=== PATIENT | female | born 2000 | race Caucasian/White ===

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

== ENCOUNTER 2019-01-14 21:01 | Emergency (ER) | payer OTHER ==
[~2019-01-14] VITALS: Ht 157.5 cm; Wt 62.7 kg
[2019-01-14 22:29] LABS: BASO # 0.1 (0.0-0.2); BASO % 0.8 % (0.0-2.0); EOS # 0.3 (0.0-0.7); EOS % 2.7 % (0-4.0); GRAN # 5.9 (1.4-6.5); HEMATOCRIT 36.7 % (35.0-45.0); HEMOGLOBIN 12.3 g/dl (12.0-15.0); LYMPH # 2.6 (1.2-3.4); LYMPH % 26.8 % (20.0-51.0); MEAN CELL VOLUME 86 fl (80.0-95.0); MEAN CORPUSCULAR HEMOGLOBIN 29 pg (26.0-32.0); MEAN CORPUSCULAR HGB CONC 34 g/dl (33.0-37.0); MEAN PLATELET VOLUME 8.8 fl (7.4-10.4); MONO # 0.7 (0.1-0.6); MONO % 7.4 % (1.7-9.3); PLATELET COUNT 277 K/mm3 (130-400); RED BLOOD COUNT 4.29 M/mm3 (4.10-5.30); REDCELL DISTRIBUTION WIDTH-CV 13.1 % (11.5-14.5)
[2019-01-14 22:31] LABS: COLLECTION METHOD CLEAN CATCH
[2019-01-14 22:40] LABS: ALANINE AMINOTRANSFERASE 18 U/L (9-52); ALBUMIN 4.1 gm/dL (3.5-5.0); ALKALINE PHOSPHATASE 85 U/L (50-136); ANION GAP 8 mmol/L (7-16); AST,SGOT 22 U/L (15-37); BILIRUBIN,TOTAL 0.2 mg/dL (0.0-1.0); BLOOD UREA NITROGEN 19 mg/dL (7-17); CALCIUM 9.3 mg/dL (8.4-10.2); CARBON DIOXIDE 28 mmol/L (22-30); CHLORIDE 105 mmol/L (98-107); GLUCOSE 109 mg/dL (74-106); SODIUM 141 mmol/L (137-145); TOTAL PROTEIN 7.1 gm/dL (6.4-8.2)
[2019-01-14 22:41] LABS: MUCOUS Present /lpf; PH 6 (5-8); URINE APPEARANCE Hazy; URINE BACTERIA None Seen /hpf; URINE BILIRUBIN Negative (NEGATIVE); URINE BLOOD Negative (NEGATIVE); URINE COLOR Yellow; URINE GLUCOSE Negative (NEGATIVE); URINE KETONE Negative (NEGATIVE); URINE LEUKOCYTE ESTERASE Negative (NEGATIVE); URINE NITRATE Negative (NEGATIVE); URINE PROTEIN(semi-quant) Negative (NEGATIVE); URINE RBC 0-2 /hpf; URINE UROBILINOGEN >=4.0 mg/dL (NEGATIVE)
[2019-01-14 22:43] LABS: ACETAMINOPHEN < 10 ug/mL (10-30); ALCOHOL(ethanol),MEDICAL < 10 mg/dL; SALICYLATE < 1.0 mg/dL
[2019-01-14 22:50] LABS: TRICYCLIC ANTIDEPRESS URINE NEGATIVE
[2019-01-15] MEDS ORDERED: ADDERALL5 MG PO (02:35)
[2019-01-15 11:01] VITALS: TEMP 98.4
[2019-01-15 12:23] VITALS: BP 107/66; PULSE 86
== END 2019-01-15 12:29 | disposition home or self-care (01) ==
LOC: COL.ER 21:01
PROVIDERS: Nurse Practitioner
DX: F32.9 Major depressive disorder, single episode, unspecified (principal); R45.851 Suicidal ideations; F90.9 Attention-deficit hyperactivity disorder, unspecified type; F91.3 Oppositional defiant disorder
CPT/HCPCS: J1200; J1630; J2060

== ENCOUNTER 2019-02-01 09:57 | Emergency (ER) | payer OTHER ==
[~2019-02-01] VITALS: Ht 157.5 cm; Wt 58.2 kg
[~2019-02-01 09:57] MED LIST: ADDERALL5 MG PO
[2019-02-01 10:08] VITALS: BP 117/79; TEMP 97.3
[2019-02-01] MEDS ORDERED: PAXIL 20MG20 MG PO (10:15)
[2019-02-01] MEDS ORDERED: KLONOPIN2 MG PO (10:15)
[2019-02-01 10:30] LABS: COLLECTION METHOD CLEAN CATCH
[2019-02-01 10:54] LABS: PH 6 (5-8); SQUAMOUS EPITHELIAL 20-50 /hpf; URINE APPEARANCE Cloudy; URINE BACTERIA Rare /hpf; URINE BILIRUBIN Negative (NEGATIVE); URINE BLOOD Negative (NEGATIVE); URINE COLOR Yellow; URINE GLUCOSE Negative (NEGATIVE); URINE KETONE Negative (NEGATIVE); URINE LEUKOCYTE ESTERASE Negative (NEGATIVE); URINE NITRATE Negative (NEGATIVE); URINE PROTEIN(semi-quant) Negative (NEGATIVE); URINE RBC 0-2 /hpf; URINE UROBILINOGEN Negative (NEGATIVE)
[2019-02-01 10:54] LABS: BASO # 0.1 (0.0-0.2); BASO % 0.9 % (0.0-2.0); EOS # 0.3 (0.0-0.7); EOS % 2.8 % (0-4.0); HEMOGLOBIN 13.6 g/dl (12.0-15.0); LYMPH % 22.1 % (20.0-51.0); MEAN CELL VOLUME 85 fl (80.0-95.0); MEAN CORPUSCULAR HEMOGLOBIN 29 pg (26.0-32.0); MEAN CORPUSCULAR HGB CONC 34 g/dl (33.0-37.0); MEAN PLATELET VOLUME 9.1 fl (7.4-10.4); MONO # 0.7 (0.1-0.6); MONO % 7.8 % (1.7-9.3); PLATELET COUNT 371 K/mm3 (130-400)
[2019-02-01 10:58] LABS: ALBUMIN 4.4 gm/dL (3.5-5.0); BILIRUBIN,TOTAL 0.3 mg/dL (0.0-1.0); CALCIUM 9.9 mg/dL (8.4-10.2); CREATININE, serum 0.6 (0.52-1.25); POTASSIUM 4.2 mmol/L (3.4-5.0); TOTAL PROTEIN 7.7 gm/dL (6.4-8.2)
[2019-02-01 11:11] LABS: TRICYCLIC ANTIDEPRESS URINE NEGATIVE
[2019-02-01 11:35] VITALS: PULSE 79
== END 2019-02-01 11:35 | disposition home or self-care (01) ==
LOC: COL.ER 09:57
PROVIDERS: Family Medicine
DX: T46.5X5A Adverse effect of other antihypertensive drugs, initial encounter (principal); R40.0 Somnolence; F98.8 Other specified behavioral and emotional disorders with onset usually occurring in childhood and adolescence; F32.9 Major depressive disorder, single episode, unspecified; F91.3 Oppositional defiant disorder

== ENCOUNTER 2019-03-25 16:22 | Inpatient (IN) | payer OTHER, MEDICAID ==
[2019-03-25] VITALS (59 sets, daily range): BP systolic 139; BP diastolic 75; PULSE 129; TEMP 97.5; O2SAT 94–100
[~2019-03-25] VITALS: Ht 157.5 cm; Wt 67.0 kg
[~2019-03-25 16:22] MED LIST changes: +KLONOPIN2 MG PO; +PAXIL 20MG20 MG PO
[2019-03-25 17:54] LABS: COLLECTION METHOD IN
[2019-03-25 18:01] LABS: BASO # 0.1 (0.0-0.2); BASO % 0.6 % (0.0-2.0); EOS # 0.2 (0.0-0.7); EOS % 1.6 % (0-4.0); GRAN # 7.9 (1.4-6.5); GRAN % 62.5 % (42.2-75.2); HEMOGLOBIN 11.5 g/dl (12.0-15.0); LYMPH # 3.4 (1.2-3.4); LYMPH % 26.9 % (20.0-51.0); MEAN CELL VOLUME 87 fl (80.0-95.0); MEAN CORPUSCULAR HEMOGLOBIN 28 pg (26.0-32.0); MEAN CORPUSCULAR HGB CONC 33 g/dl (33.0-37.0); MEAN PLATELET VOLUME 9.1 fl (7.4-10.4); MONO % 7.8 % (1.7-9.3); PLATELET COUNT 294 K/mm3 (130-400); RED BLOOD COUNT 4.08 M/mm3 (4.10-5.30); REDCELL DISTRIBUTION WIDTH-CV 13.2 % (11.5-14.5)
[2019-03-25 18:02] LABS: MUCOUS Present /lpf; PH 5 (5-8); SQUAMOUS EPITHELIAL 0-2 /hpf; URINE APPEARANCE Clear; URINE BACTERIA None Seen /hpf; URINE BILIRUBIN Negative (NEGATIVE); URINE BLOOD Negative (NEGATIVE); URINE COLOR Yellow; URINE GLUCOSE Negative (NEGATIVE); URINE KETONE Negative (NEGATIVE); URINE LEUKOCYTE ESTERASE Negative (NEGATIVE); URINE NITRATE Negative (NEGATIVE); URINE PROTEIN(semi-quant) Negative (NEGATIVE); URINE RBC 0-2 /hpf; URINE UROBILINOGEN Negative (NEGATIVE)
[2019-03-25 18:09] LABS: ACETAMINOPHEN < 10 ug/mL (10-30); ALANINE AMINOTRANSFERASE 28 U/L (9-52); ALBUMIN 4.2 gm/dL (3.5-5.0); ALCOHOL(ethanol),MEDICAL < 10 mg/dL; ALKALINE PHOSPHATASE 96 U/L (50-136); ANION GAP 13 mmol/L (7-16); AST,SGOT 26 U/L (15-37); BILIRUBIN,TOTAL 0.2 mg/dL (0.0-1.0); BLOOD UREA NITROGEN 12 mg/dL (7-17); CALCIUM 8.8 mg/dL (8.4-10.2); CARBON DIOXIDE 23 mmol/L (22-30); CHLORIDE 106 mmol/L (98-107); CREATININE, serum 0.59 (0.52-1.25); GLUCOSE 132 mg/dL (74-106); POTASSIUM 3.4 mmol/L (3.4-5.0); SALICYLATE < 1.0 mg/dL; SODIUM 142 mmol/L (137-145)
[2019-03-25 18:20] LABS: HEMATOCRIT 35.4 % (35.0-45.0)
[2019-03-25 18:32] LABS: TRICYCLIC ANTIDEPRESS URINE POSITIVE
[2019-03-25 19:06] LABS: INR 0.9 (0.8-3.0); PROTHROMBIN TIME 10.2 SECONDS (9.7-12.8)
[2019-03-25 19:09] LABS: PARTIAL THROMBOPLASTIN TIME 27.2 SECONDS (26.0-37.0)
--- NOTE | 2019-03-25 21:05 | NUR ---
Patient admitted to ICU08 from ED, accompanied by [facility] ED RN. Patient in simons gown, suicide precautions in place. MARJ Ramirez outside of room, notified of arrival, will assume care of patient at this time.
[2019-03-25] MEDS ORDERED: PAXIL 20MG20 MG PO (21:12)
[2019-03-25] MEDS ORDERED: CLOZAPINE50 MG PO (21:12)
[2019-03-25] MEDS ORDERED: ADDERALL XR20 MG PO (21:13)
[2019-03-25 22:26] LABS: ARTERIAL BLD GAS O2 SATURATION 97.4 % (92-100); ARTERIAL BLD GAS TCO2 CT 24.5; ARTERIAL BLOOD GAS BASE EXCESS -1.5 (-2-2); ARTERIAL BLOOD GAS HCO3 23.3 meq/L (22-26); ARTERIAL BLOOD GAS PCO2 39.4 mmHg (35-45); ARTERIAL BLOOD GAS PO2 100.5 mmHg (80-100); ARTERIAL BLOOD GAS pH 7.39 (7.35-7.45)
[2019-03-26] VITALS (228 sets, daily range): BP systolic 105–135; BP diastolic 62–98; PULSE 106–126; TEMP 98–98.9; O2SAT 91–100
--- NOTE | 2019-03-26 00:10 | NUR ---
Patient assessment completed at this time, patient remains in suicide precautions, in simons gown. Patient sleeping, agitated on arousal. Will continue to monitor.
[2019-03-26 01:13] LABS: BASO # 0.1 (0.0-0.2); BASO % 0.6 % (0.0-2.0); EOS % 0.3 % (0-4.0); GRAN # 11.7 (1.4-6.5); GRAN % 81.3 % (42.2-75.2); HEMATOCRIT 35.9 % (35.0-45.0); HEMOGLOBIN 12.2 g/dl (12.0-15.0); LYMPH # 1.7 (1.2-3.4); LYMPH % 12.1 % (20.0-51.0); MEAN CELL VOLUME 83 fl (80.0-95.0); MEAN CORPUSCULAR HEMOGLOBIN 28 pg (26.0-32.0); MEAN CORPUSCULAR HGB CONC 34 g/dl (33.0-37.0); MEAN PLATELET VOLUME 8.9 fl (7.4-10.4); MONO # 0.8 (0.1-0.6); MONO % 5.4 % (1.7-9.3); PLATELET COUNT 336 K/mm3 (130-400); RED BLOOD COUNT 4.31 M/mm3 (4.10-5.30); REDCELL DISTRIBUTION WIDTH-CV 13.3 % (11.5-14.5)
[2019-03-26 01:23] LABS: ALBUMIN 4.1 gm/dL (3.5-5.0); BILIRUBIN,TOTAL 0.4 mg/dL (0.0-1.0); CALCIUM 9.4 mg/dL (8.4-10.2); CREATININE, serum 0.49 (0.52-1.25); POTASSIUM 4.2 mmol/L (3.4-5.0); TOTAL PROTEIN 7.4 gm/dL (6.4-8.2)
--- NOTE | 2019-03-26 02:35 | NUR ---
Patient remains agitated upon arrousal. Patient requiring multiple staff members for bed changes, will continue to monitor.
--- NOTE | 2019-03-26 06:33 | NUR ---
Patient continues to strike out at staff when arroused both verbally and physically. Patient remains in suicide precautions, in simons gown and in one to one observation.
--- NOTE | 2019-03-26 07:10 | NUR ---
Report received from MIGUEL Little.
--- NOTE | 2019-03-26 08:00 | NUR ---
Pt resting in bed. VSS. LR infusing throught left FA PIV. Pt remains on suicide precautions with one to one observation.
--- NOTE | 2019-03-26 12:17 | NUR ---
Pt resting in bed. Becomes agitated when awaken. Pt oriented to self, attempted to reorient patient to place and situation. Pt uncooperative at times and moves away from nurse when helping pt on bedpan. Pt states she is tired and just wants to sleep. Warm blanket provided. Pt RAMANDO and turns self in bed. Remains in suicide precautions. Wearing simons gown. One to one observation.
--- NOTE | 2019-03-26 14:14 | NUR ---
Pt still drowsy. Wakes up briefly and is agitated. Disoriented to place and situation. Attempt to reorient pt. Pt falls back asleep.
--- NOTE | 2019-03-26 14:45 | NUR ---
Pt very agitated, trying to get OOB. Says she needs to go to the bathroom. Bedpan offered, pt refuses to get on bedpan. Pt states her sheets are dirty and wants to get cleaned. Pt disoriented, says she is at home. Attempted to reorient pt to place and situation. Pt given bed bath, linens changed. Pt still very agitated, impulsive, trying to get OOB. PRN ativan IVP given.
--- NOTE | 2019-03-26 15:00 | NUR ---
Pt disoriented and agitated. Calmed down once offered warm blanket for comfort. Pt now resting in bed. Remains on suicide precautions and one to one observation.
--- NOTE | 2019-03-26 15:30 | NUR ---
Pt restless in bed, trying to climb OOB. Says she is in school. Attempted to reorient pt. Pt remains on suicide precautions with one to one observation.
--- NOTE | 2019-03-26 17:30 | NUR ---
Pt resting in bed. VSS. On suicide precautions with one to one observation. Bed exit alarm still on.
--- NOTE | 2019-03-26 19:20 | NUR ---
Report given to MIGUEL Ackerman.
--- NOTE | 2019-03-26 19:57 | NUR ---
PT RESTING IN BED, GETS AGITATED UPOM AROUSAL. PT RAMBLING IN HER SLEEP AND STRIKING OUT IN AIR AND PICKING ON LINES AND SHEETS. INCONTINENT CARE PROVIDED, ALL BED LINENS CHANGED. PT GETS AGRESSIVE PHYSICALLY AND VERBALLY TOWARDS TO STAFF WHEN CHANGING BED LINENS. VITAL SIGNS STABLE. PT REMAINS 1:1 OBSERVATION AND ON PARRA GOWN. ALL STIMULATION DECREASE, TV OFF. PRN HALDOL AVAILABLE IF NEEDED. WILL CONTINUE TO MONITOR.
[2019-03-27] VITALS (806 sets, daily range): BP systolic 99–138; BP diastolic 51–85; PULSE 98–120; TEMP 97.5–99.8; O2SAT 75–100
--- NOTE | 2019-03-27 00:15 | NUR ---
PT RESTING IN BED, SLEEPING. THIS RN TRIED PUTTING BP CUFF INTO PT'S ARM BUT PT TOOK IT OFF RIGHT AWAY AND STARTED GETTING AGIATTED AGAIN. WILL RE-ATTEMPT RECHECK LATER AT 0400 ASSESSMENT. OTHERWISE, PT APPEARS COMFORTABLE AT THIS TIME, REMAINS ON 1:1. WILL CONTINUE TO MONITOR.
[2019-03-27 04:54] LABS: BASO # 0.1 (0.0-0.2); BASO % 0.6 % (0.0-2.0); EOS # 0.2 (0.0-0.7); EOS % 0.9 % (0-4.0); GRAN # 15.1 (1.4-6.5); GRAN % 85.7 % (42.2-75.2); HEMATOCRIT 37.6 % (35.0-45.0); HEMOGLOBIN 12.3 g/dl (12.0-15.0); LYMPH # 1.3 (1.2-3.4); LYMPH % 7.4 % (20.0-51.0); MEAN CELL VOLUME 86 fl (80.0-95.0); MEAN CORPUSCULAR HEMOGLOBIN 28 pg (26.0-32.0); MEAN CORPUSCULAR HGB CONC 33 g/dl (33.0-37.0); MONO # 0.9 (0.1-0.6); MONO % 4.9 % (1.7-9.3); PLATELET COUNT 311 K/mm3 (130-400); RED BLOOD COUNT 4.35 M/mm3 (4.10-5.30); REDCELL DISTRIBUTION WIDTH-CV 13.5 % (11.5-14.5)
--- NOTE | 2019-03-27 04:55 | NUR ---
Jessica from poison control called and updated regarding pt. pt had a good and mostly calm night if not stimulated/awakened. pt mostly sleeping. VSS. pt remains on 1:1 observation and all precaution in place. will continue to monitor.
[2019-03-27 05:04] LABS: ALBUMIN 3.8 gm/dL (3.5-5.0); BILIRUBIN,TOTAL 0.9 mg/dL (0.0-1.0); CREATININE, serum 0.65 (0.52-1.25); MAGNESIUM 1.8 mg/dL (1.6-2.3); POTASSIUM 3.7 mmol/L (3.4-5.0); TOTAL PROTEIN 6.7 gm/dL (6.4-8.2)
--- NOTE | 2019-03-27 06:11 | NUR ---
PT YELLINNG AND SCREAMING "STOP TOUCHING ME! DON'T TOUCH ME! SHE'S RAPING ME!" THIS RN WAS CHANGING PT'S BED LINENS WITH CHARLIERN AND MIGUEL PEREZ. PT GETS REALLY WORKED UP AND AGITATED WHEN AROUSED/AWAKENED AND GETS PHYSICALLY AGGRESIVE TOWARDS STAFF. PT REMAINS ON 1:1 OBSERVATION, ALL PRECAUTIONS IN PLACE. WILL CONTINUE MONITORING.
--- NOTE | 2019-03-27 07:00 | NUR ---
REPORT RECEIVED FROM MIGUEL EDWARDS. HIREN SLEEPING IN BED WITH CRM IN PLACE. LR INFUSING TO LEFT FOREARM IV.
--- NOTE | 2019-03-27 09:00 | NUR ---
DR. LAWSON ROUNDS AT THIS TIME. PATIENT SLEEPING.
--- NOTE | 2019-03-27 10:00 | NUR ---
PATIENT WAKES AND STARTS SCREAMING THAT SHE NEEDS TO USE THE RESTROOM. SHE IS ASSISTED TO USE THE BEDPAN. LINENS GET WET, MYSELF AND ANOTHER NURSE ATTEMPT TO HAVE PATIENT ROLL FROM SIDE TO SIDE TO GET HER LINENS CHANGED. SHE CONTINUES TO SCREAM AND YELL AND CRY, THRASHING ABOUT IN THE BED AND STRIKING OUT AT US ANY TIME WE ATTEMPT TO GET HER CLEANED UP OR TURNED. PATIENT IS UNABLE TO FOLLOW DIRECTION AT THIS TIME. SHE IS GIVEN DIRECTIONS AND THEN STARTS DOING SOMETHING COMPLETELY DIFFERENT OR DOES THE OPPOSITE. EVENTUALLY, PATIENT GOWN IS CHANGED. LINENS CHANGED BEST POSSIBLE. ONCE WE STOP HELPING THE PATIENT, SHE LIES ON HER SIDE AND BECOMES QUIET.
--- NOTE | 2019-03-27 12:00 | NUR ---
PATIENT WAKES AND ASKS FOR LUNCH. I ASK HER ORIENTATION QUESTIONS AND SHE ANSWERS CORRECTLY. I ASK HER WHY SHE IS IN THE HOSPITAL. SHE ANSWERS CORRECTLY. I ASK HER IF SHE IS STILL SUICIDAL. SHE STATES " NO, BUT I'M JUST MAD I'M SUCK HERE." I EXPLAIN THE PLAN OF CARE FROM THIS POINT. SHE VERBALIZES UNDERSTANDING.
--- NOTE | 2019-03-27 14:00 | NUR ---
DR. LAWSON COMES BACK TO SEE PATIENT NOW THAT SHE IS COMMUNICATING WELL WITH STAFF. HE EXPLAINS THE NEED TO BE IN THE HOSPITAL AND THE PLAN FOR TOMORROW. PSYCHIATRY WILL COME SEE HER TOMORROW.
--- NOTE | 2019-03-27 17:00 | NUR ---
Patient continues to communicate appropriately, using call light when she needs something, asking for things politely. She is able to use bedside commode with assistance of one person. Will continue to monitor.
--- NOTE | 2019-03-27 19:06 | NUR ---
REPORT GIVEN TO MIGUEL ETIENNE. PATIENT LYING IN BED AND PARTICIPATES IN REPORT AND DISCUSSION OF PLAN OF CARE. CARE TURNED OVER AT THIS TIME.
--- NOTE | 2019-03-27 20:18 | NUR ---
Patient sleeping in bed. Able to use call light appropriately but still under direct supervision by RN. Bed alarm functional. Patient denies current throughts of harming herself or others. Able to move self in bed independently.
[2019-03-28] VITALS (380 sets, daily range): BP systolic 123–138; BP diastolic 67–85; PULSE 83–113; TEMP 97.9–99.4; O2SAT 71–100
[2019-03-28 05:39] LABS: BASO # 0.1 (0.0-0.2); BASO % 0.6 % (0.0-2.0); EOS # 0.3 (0.0-0.7); EOS % 2.6 % (0-4.0); GRAN # 7.9 (1.4-6.5); GRAN % 72.7 % (42.2-75.2); HEMATOCRIT 37.4 % (35.0-45.0); HEMOGLOBIN 12.3 g/dl (12.0-15.0); LYMPH # 1.9 (1.2-3.4); LYMPH % 17.5 % (20.0-51.0); MEAN CELL VOLUME 86 fl (80.0-95.0); MEAN CORPUSCULAR HEMOGLOBIN 28 pg (26.0-32.0); MEAN CORPUSCULAR HGB CONC 33 g/dl (33.0-37.0); MEAN PLATELET VOLUME 9.2 fl (7.4-10.4); MONO # 0.7 (0.1-0.6); PLATELET COUNT 324 K/mm3 (130-400); RED BLOOD COUNT 4.37 M/mm3 (4.10-5.30); REDCELL DISTRIBUTION WIDTH-CV 13.6 % (11.5-14.5)
[2019-03-28 05:46] LABS: BILIRUBIN,TOTAL 0.4 mg/dL (0.0-1.0); CALCIUM 9.2 mg/dL (8.4-10.2); CREATININE, serum 0.76 (0.52-1.25); MAGNESIUM 1.7 mg/dL (1.6-2.3); POTASSIUM 3.5 mmol/L (3.4-5.0); TOTAL PROTEIN 7.1 gm/dL (6.4-8.2)
--- NOTE | 2019-03-28 07:30 | NUR ---
Bedside shift report received from MIGUEL Bermudez. Patient is lying in bed awake, alert, and responding appropriately. Full assessment completed. Vital signs stable. Patient has no complaints or concerns at this time.
--- NOTE | 2019-03-28 08:00 | NUR ---
Patient's mood suddenly becomes labile. Patient states "My IV is hurting" while crying. Patient unable to describe pain, just states "it hurts" while continuously crying. Left forearm IV site assessed. Site has no redness drainage or edema. IV site flushed and blood return noted. Patient is currently receiving her second bag of potassium IV and is educated that the potassium can sting. Patient states "Stop the IV then, it hurts". Patient is refusing IV fluids and IV potassium at this time. Once intermittent IV flushed and IV fluids discontinued, patient stops crying and starts to relax.
--- NOTE | 2019-03-28 08:53 | NUR ---
Patient is currently sleeping in bed. Vital signs stable. 20mEq EfferK reconstituted in apple juice and patient educated on need to drink the juice with potassium since she has refused all IV meds/fluids at this time. Patient opens eyes and nods 'yes' that she will drink the juice, but then goes back to sleep.
--- NOTE | 2019-03-28 10:15 | NUR ---
RT at bedside to obtain ordered EKG to assess patient's QTc. Patient is very uncooperative and is rolling around in the bed. Patient is instructed to lay on her back and that we were going to place stickers on her to look at her heart rhythm. Patient is yelling and states "I just wanna go home! I don't wanna be here!". Patient is educated that knowing her QTc interval will allow the doctors to decide if she is able to be 'medically cleared' to go home. Patient continued to be uncooperative. RT told by RN to just document that she is refusing the EKG. Patient then yells "No! I want it!". Patient is then mostly cooperative and needs some reeducation to lay on her back and to lay completely still. EKG completed and results called to CARI Pritchard at this time.
--- NOTE | 2019-03-28 10:35 | NUR ---
Psychiatric consult was ordered for the patient.
--- NOTE | 2019-03-28 10:45 | NUR ---
Due to the patient's condition, FASHION DESIGN PROFESSOR student contacted the patient's father, Cesar Evans to complete initial assessment. Cesar reports there is no DPOA-HC in place. The patient lives [facility] [place] [facility] The patient does not use DME and is independent with ADLs. The patient's PCP is on [place] and possibly will begin seeing a provider at [facility]. [facility] assist with medications. The patient goes to [facility] for mental health medications. Cesar provided the [facility]'s nursing program coordinatorsupply chain logistics manager, Olivia Burdick, [facility] and office number. A Psychiatric Consult ordered. guest services lead will continue to follow.
--- NOTE | 2019-03-28 11:47 | NUR ---
Patient is sleeping at this time with no complaints or concerns.
--- NOTE | 2019-03-28 12:19 | NUR ---
Patient asks "When can I go back?" meaning when can she go back to [facility]. Patient reeducated that she needs to be seen by the psychiatrist first who will be here later this afternoon.
--- NOTE | 2019-03-28 13:10 | NUR ---
Patient's dad at ICU doors to visit patient. Mr. Evans is updated on the patient's condition and told that his daughter still needs to be screened by Psych before she can have any visitors. He understands this and would like to be updated when his daughter is seen by Psych. He states he will hang out at the hospital until Psych arrives to be updated on his daughters plan of care.
--- NOTE | 2019-03-28 15:50 | NUR ---
Patient presses call light and I answered. Patient states "I wanna go home!" while crying. I educated the patient and told her that Dr. Garrtet was rounding now and would be able to see her in a few minutes and would determine a plan of care for her. Patient continues to cry and states "I just wanna go home! Why can't I go home? I want to call Vy." Patient re-educated on need to see psychiatrist first. Patient does not understand this and needs frequent re-educating.
--- NOTE | 2019-03-28 16:03 | NUR ---
Patient's parents are notified of patient being assessed by psychiatry and are awaiting update from Dr. Garrett in the ICU waiting room.
--- NOTE | 2019-03-28 16:05 | NUR ---
During assessment with Dr. Garrett, patient's mood becomes very labile and patient is yelling saying "I want to go home!" over and over. Patient is very uncooperative, crying, and having several verbal outbursts. Dr. Garrett completes assessment and meets with patient's parents in the waiting room to discuss plan of care.
--- NOTE | 2019-03-28 16:09 | NUR ---
Patient refusing vital sign monitoring at this time.
--- NOTE | 2019-03-28 16:15 | NUR ---
Patient presses call light again and is loudly crying and yelling continuously "I wanna leave! I wanna leave!". Patient re-educated on plan of care.
--- NOTE | 2019-03-28 16:45 | NUR ---
Patient's dad and Vy (caregiver from [facility]) at bedside to soothe patient. Patient continues to yell, wail, and cry saying "I want to go home!". Patient's father seems to think that he can "get her to go voluntarily" to a psych inpatient facility. Dr. Garrett updated via telephone of patient's current status being uncooperative, yelling, crying, labile moods, and states that the patient should be admitted involuntarily to an inpatient psych facility at this time. [facility] notified of need to screen.
--- NOTE | 2019-03-28 17:00 | NUR ---
Patient becomes belligerant, aggressive, and violent. Patient is banging on windows, throwing items around the room, and pushing staff attempting to leave her room. Security called and at the bedside. 3 RNs attempted to reorient patient and calm patient down, but unsuccessful. Patient continues to be extremely violent. Patient states "I'm gonna kill myself", "I'm gonna kill myself". Patient places herself in the corner and begins to bang her head against the wall continuously. Patient told to stop hitting her head, security tries to calm her down and patient states "Don't touch me, nigger". Patient becomes extremely combative by grabbing, digging nails into, and spitting on nurses/security. Dr. Garrett called and orders received for IM medications due to patient ripping out her IV. Dr. Garrett also orders for 4-point locked restraints and restraints initiated by 4 RNs and 1 security staff. Once patient in 4-points, patient continues to spit. Patient starts to bang head against all of the side rails. Side rails padded at this time to protect patient's head. Patient continues to scream, wail, yell, and flail all [address] patient on a continuous heart monitor, patient thrashing about and attempts to bite RNs. Unable to place heart monitor at this time. EKG from this morning (03/28/2019 at 1009) shows a QTc of 390 and paper EKG placed in paper chart. For some reason, EKG has not shown up in [facility] as of yet. Will attempt to place heart monitor when patient calms down.
--- NOTE | 2019-03-28 17:28 | NUR ---
Unable to take patient's vital signs at this time. Patient is violent and combative in 4-point restraints.
--- NOTE | 2019-03-28 18:19 | NUR ---
updated on patient's status and need for 4-point restraints. Father is understanding and familiar with the psychiatric care process.
--- NOTE | 2019-03-28 19:00 | NUR ---
Bedside shift report given to MIGUEL Hernandez. Patient is lying in bed, 4-point restraints intact. Patient's left arm exercised by 2 RNs and then restrained back down to side. Patient is calmer and has allowed RN to place heart monitor on her. She is wearing a telemetry box. Patient is tachycardic at 106bpm. Bed in lowest position and in reverse trendelberg at this time. Call light placed within reach. Personal belongings stowed away in locked cabinet in soiled utility room.
--- NOTE | 2019-03-28 19:20 | NUR ---
Bedside report received from MIGUEL Linda. Patient is restrained in 4 points. Left arm repositioned and restraints secured.
--- NOTE | 2019-03-28 20:00 | NUR ---
Patient laying in bed watching TV. She remains in 4-points and has been restless and struggling in the restraints. Patient yells when she talks. Discussed with patient the slow removal of restraints as she remains cooperative, removing one restraint at a time. Patient is agreeable and states she will cooperate. She is alert and oriented x4. No complaints of pain, just some discomfort with restraints. Restraints checked and patient has good circulation and movement. Assessment complete. Lungs are clear bilaterally in all leon. HR and rhythm are regular with normal S1 and S2 heard. Bowel sounds active x4. Peripheral pulses are palpable in all extremities. Patient has scratches on her left forearm. Offered fluids and restrrom, she denies need for both. Will continue to monitor. Call light within reach.
--- NOTE | 2019-03-28 20:50 | NUR ---
Julián here at this time from [facility] to screen the patient.
--- NOTE | 2019-03-28 22:40 | NUR ---
Patient has been cooperative thus far in the shift with the exception of some agitation when the [place] screener was speaking with her. Right arm restraint removed. Will continue to monitor.
--- NOTE | 2019-03-28 23:19 | NUR ---
written orders received from Dr Smart for restraint renewal.
--- NOTE | 2019-03-28 23:30 | NUR ---
Patient has remained cooperative and calm. Left leg restraint removed and spit hackett taken off.
[2019-03-29] VITALS (18 sets, daily range): BP systolic 104–135; BP diastolic 56–95; PULSE 91–120; TEMP 97.2–99.7
--- NOTE | 2019-03-29 | NUR ---
Patient asleep at this time. Startles awake to name. Vitals obtained and remain stable. Patient is being cooperative. Assessment complete with no changes from previous exam. Remaining two limbs in restraints are warm and dry to the touch, pulses intact, good circulation. Patient attempts to turn on her side with some success. Denies want for bedpan or fluids/snack. Will continue to monitor. Will continue to remove restraints as patient behavior allows.
--- NOTE | 2019-03-29 00:56 | NUR ---
Right leg restraint removed at this time.
--- NOTE | 2019-03-29 02:20 | NUR ---
Patient's 4point restraints D/C'd at this time. Patient has been cooperative and noncombative and has done well with extremity releases. Patient meets criteria for restraint removal.
--- NOTE | 2019-03-29 02:20 | NUR ---
Patient's last restraint removed at this time. Patient is quiet and sleeping. Awakens to name. She has been cooperative and pleasant. Will continue to monitor.
[2019-03-29 05:10] LABS: BASO # 0.1 (0.0-0.2); BASO % 0.8 % (0.0-2.0); EOS # 0.3 (0.0-0.7); EOS % 2.6 % (0-4.0); GRAN # 7.8 (1.4-6.5); GRAN % 71.9 % (42.2-75.2); HEMATOCRIT 37.9 % (35.0-45.0); HEMOGLOBIN 12.9 g/dl (12.0-15.0); LYMPH # 1.8 (1.2-3.4); LYMPH % 16.6 % (20.0-51.0); MEAN CELL VOLUME 84 fl (80.0-95.0); MEAN CORPUSCULAR HEMOGLOBIN 28 pg (26.0-32.0); MEAN CORPUSCULAR HGB CONC 34 g/dl (33.0-37.0); MONO # 0.8 (0.1-0.6); MONO % 7.5 % (1.7-9.3); PLATELET COUNT 327 K/mm3 (130-400); RED BLOOD COUNT 4.54 M/mm3 (4.10-5.30); REDCELL DISTRIBUTION WIDTH-CV 13.4 % (11.5-14.5)
[2019-03-29 05:19] LABS: CREATININE, serum 0.58 (0.52-1.25); POTASSIUM 3.9 mmol/L (3.4-5.0)
--- NOTE | 2019-03-29 07:00 | NUR ---
Bedside shift report received from MIGUEL Hernandez. Patient is sleeping soundly. Telemetry box on and functioning appropriately, 91bpm sinus rhythm. Bed in lowest position. Call light within reach. Personal items remain stowed away in locked cabinet in soiled utility room. Room remains cleared of all potential hazardous items due to patient's reason for admission and current psychological status to ensure patient and staff safety.
--- NOTE | 2019-03-29 07:07 | NUR ---
Bedside report given to MIGUEL Linda. Patient has remained calm and cooperative. Transfer of care at this time.
--- NOTE | 2019-03-29 08:00 | NUR ---
Patient sitting up in bed. Patient's meal tray brought into room. Offered patient to use the restroom and she accepts. Patient assisted to toilet with no complications. Assessment completed. Vital signs stable. Patient asks "When am I getting out of here? What facility am I going to? What time am I leaving? Can I speak to Vy?" Patient updated and told that RN hasnt heard from [facility] and does not know a time frame or which facility the patient will be going to. Patient is instructed that she cannot talk to Vy at this time due to reason for admission. Patient states "Can you ask someone if I can talk to Vy?" Patient informed that RN will inquire, but most likely no. Bed linens changed at this time. Patient independently brushes her teeth and places shower cap on head to wash hair. Patient finishes breakfast, tray brought to soiled utility room, and patient lays down to rest watching TV.
--- NOTE | 2019-03-29 08:30 | NUR ---
[facility] and patient states she has no recollection of talking with him. She states she "doesn't remember being well".
--- NOTE | 2019-03-29 08:50 | NUR ---
Patient's mood becomes labile alternation between a flat affect with responses very monotone and crying, becoming more anxious. Patient medicated with PO Ativan at this time via PRN order from Dr. Wheeler. Patient continues to ask "When am I getting out of here?", "When is the doctor coming?", "What facility am I going to?" It remains unknown what the timeline is for her leaving, how she will be transported, and where she is going and patient is told that. Patient needs constant re-education on plan of care and shows she is not happy with it by crying and raising her voice in response. Patient is unable to control her emotions at this time.
--- NOTE | 2019-03-29 09:26 | NUR ---
Patient continues to have labile moods alternating between flat affect, monotone voice and crying.
--- NOTE | 2019-03-29 09:35 | NUR ---
[facility] called to get updated on what the plan is today. Julián unavailable at this time, but woman who answered took a message and the ICU number and will get back to me with answers when Julián becomes available.
--- NOTE | 2019-03-29 09:37 | NUR ---
Patient presses call light and states "I'm hungry" after eating her breakfast. She states she wants sweets. Food ordered from culinary services and patient told it would be up momentarily. Patient states "I want it now".
--- NOTE | 2019-03-29 09:59 | NUR ---
Talked to Julián and updated him on patient's current status and that she doesn't remember talking to him at all yesterday. Julián questioned about whether the patient will be voluntary or involuntary, Julián states she will be an involuntary admit. Will fax over patient's chart to [facility] to get placement.
--- NOTE | 2019-03-29 10:15 | NUR ---
Patient offered restroom and fluids and accepts both. Patient asks "When am I leaving?" "Where am I going?". Told patient that I talked to Julián from [facility] and he is working on getting her placed somewhere. I do not know a timeline. Patient then states "I'm hungry" just after finishing the snack of brownie and ice cream she requested.
--- NOTE | 2019-03-29 10:27 | NUR ---
Discussed with Mee Horticulture Supervisor about patient's plan of care and conversation with Julián Broderick. Mee states she will review the chart and update patient's family at this time.
--- NOTE | 2019-03-29 10:30 | NUR ---
Julián from [facility] reports the patient is to be placed involuntary for inpatient psychiatric treatment. MATERIAL HANDLING SUPERVISOR student contacted the patient's father, Cesar and the web developer programmer with [facility] Gonzalez both were in agreeance. director of managed services will continue to follow.
--- NOTE | 2019-03-29 10:31 | NUR ---
Patient continues to have a labile mood and unable to manage behavior by alternating between a flat affect, monotone responses and crying.
--- NOTE | 2019-03-29 11:00 | NUR ---
Patient given vanilla and chocolate pudding as well as apple sauce per her request. Patient eats 100% of snack. Livia the plug cutter made aware of patient's constant request for food and snacks and she is ordering snacks TID between her meals.
--- NOTE | 2019-03-29 11:01 | NUR ---
[facility] called to check if fax went through of the patient's chart that Julián requested. Fax did not come through yet and [facility] states they will call me back if it does not come through shortly so Jessica, Refrigerator Repairman can resend fax.
--- NOTE | 2019-03-29 11:30 | NUR ---
Patient is up and about in the room, ambulating without difficulty.
--- NOTE | 2019-03-29 11:36 | NUR ---
Patient returns to bed and is lying down watching TV.
--- NOTE | 2019-03-29 11:58 | NUR ---
Patient states "When is the chelsea coming to talk to me?". RN asks "The chelsea from [facility]?". Patient states "Yes". Patient told that she talked to Julián last night and that he has already completed the screen. Patient states "I thought he was coming back to take me to the facility? When am I leaving to go to the new place?" Patient told that I still do not have a timeline for when she is leaving and I have not heard back from Julián yet about placement. Her chart has been faxed to Julián per his request.
--- NOTE | 2019-03-29 12:12 | NUR ---
Patient is alternating between lying in bed and pacing around the room. Patient is restless and not able to sit still.
--- NOTE | 2019-03-29 12:15 | NUR ---
Patient presses call light and asks RN "What day is it?" "Which hospital am I in?" and "When am I getting out of here?". I told her the date, that she was in [place], [place] at [facility], and that I have yet to hear back from Julián but I would update her as soon as I knew.
--- NOTE | 2019-03-29 12:31 | NUR ---
Patient presses call light and asks "When is my food coming?". I called to get her a second lunch tray at 1155 and they said they bring her up one once the servers finish rounding on all their patients for lunch. Patient is told this previously and is retold this now. Patient also inquires about getting a second pair of glasses from home since she broke hers yesterday evening. , patient's father, contacted to see if Vy (patient's caregiver) could bring her another pair if possible.
--- NOTE | 2019-03-29 12:46 | NUR ---
Patient continues to be up and down out of bed, ambulating around room, to and from the bedside commode.
--- NOTE | 2019-03-29 13:01 | NUR ---
Patient finished her second lunch tray and told that as soon as I learn anything about her plan of care or a timeline, I will let her know. Patient also informed that she should have a snack coming around 1400-1430ish. Patient nods in understanding.
--- NOTE | 2019-03-29 13:12 | NUR ---
Patient presses call light and requests coloring pages and crayons to keep herself busy. Will look for these items to give to her.
--- NOTE | 2019-03-29 13:28 | NUR ---
salvage supervisor Marilyn retrieved coloring book/pages and some crayons and they were given to the patient.
--- NOTE | 2019-03-29 14:28 | NUR ---
Scheduled snack placed in patients room on bedside table, but patient is sleeping at this time.
--- NOTE | 2019-03-29 14:41 | NUR ---
Patient awake, eats snack, and is now ambulating around room and using the restroom.
--- NOTE | 2019-03-29 14:55 | NUR ---
Patient presses call light and asks "When am I getting out of here?". I repeated to patient what I told her earlier, that I have not heard back from Julián and will update her as soon as I know anything, but I have not heard anything yet. Patient would like her glasses and I told her that I have contacted her father who said he would get ahold of Vy to find her other pair of glasses. Patient is upset as noted by crying and grimacing facial expressions and states "I can't see without my glasses". Patient reassured that I let her father and Vy know, but I haven't heard back from them yet.
--- NOTE | 2019-03-29 15:21 | NUR ---
Bedside monitor screen just went black. All connections and outlets assessed and nothing has come unplugged. Christiana called and at the bedside within a few minutes. Monitor assessed by optical manufacturing technician and he determines that the monitor needs replaced. Until then, Jessica podiatric technician notified of my inability to see heart rhythm at bedside. Telemetry box intact and heart rhythm still able to be monitored by Jessica at this time.
--- NOTE | 2019-03-29 15:30 | NUR ---
dairy technologist in room to change out monitor and patient starts to work herself up, crying, yelling out over and over "I wanna go home! I wanna go home! I want my dad! I want my dad!". RN attempted to calm patient by reorienting her and explaining the plan of care once again, patient does not calm down and continues to cry and yell out. dairy technologist steps out of room to fix monitor, patient continues to cry. RN steps out to continue 1:1 observation. force variation equipment tender Eric, ICU Occupational Therapist Home Based Sana, and security made aware of patient's sudden drastic change in mood in case there is a need to intervene for behavior escalation.
--- NOTE | 2019-03-29 15:52 | NUR ---
Patient refusing vital signs at this time.
--- NOTE | 2019-03-29 16:07 | NUR ---
Talked with Angeles at [facility] about an update on patient's current status with involuntary placement. Angeles states that Julián faxed over to [facility] and the patient is on the waiting list there to be accepted. Timeline of when patient will be accepted to OSH is unknown at this time.
--- NOTE | 2019-03-29 16:18 | NUR ---
Patient presses call light and states "I'm hungry". I let the patient know that the meal trays should be coming around within the hour.
--- NOTE | 2019-03-29 16:22 | NUR ---
IT returns with new monitor to place in room; however, previously the patient became very agitated with crying, verbal outbursts, and unable to manage her behavior. Therefore, IT was told to wait on placing the new monitor and to check back tomorrow.
--- NOTE | 2019-03-29 16:46 | NUR ---
Patient remains hungry and snack of applesauce and saltine crackers given to patient prior to dinner tray arrival.
--- NOTE | 2019-03-29 17:07 | NUR ---
Patient's crying and frequent labile moods have subsided for now. Patient allows me to take her vital signs at this time.
--- NOTE | 2019-03-29 18:10 | NUR ---
Patient is requesting to recieve a "shot to help me sleep". I asked if she was wanting the same shot she got in her leg last night and patient states "yes". This is the second time in the last hour she has requested a shot to help her sleep.
--- NOTE | 2019-03-29 18:23 | NUR ---
1mg Ativan given per patient's request and patient tolerates well with no complications.
--- NOTE | 2019-03-29 19:02 | NUR ---
Shift report given to MIGUEL Hernandez at this time. Patient in lying in bed quietly with lights off watching TV with no complaints or concerns at this time. Bed in lowest position. Call light within reach.
--- NOTE | 2019-03-29 19:05 | NUR ---
Bedside report received from MIGUEL Linda. Patient lying in bed watching tv, moving around restlessly.
--- NOTE | 2019-03-29 20:00 | NUR ---
Patient laying in bed and moving around restlessly and struggling with blankets. Patient is alert and oriented x3. No complaints of pain. Vitals obtained and are stable. Assessment complete with patient's permission. Lungs are clear bilaterally in all leon. HR and rhythm are regular with normal S1 and S2 heard, she is tachycardic. Bowel sounds active x4. Peripheral pulses palpable in all extremities, no edema noted. Patient has requested some warm milk, provided. Patient repeatedly asks for another dose of ativan. Let her know that this nurse cannot do that as it is too soon for another dose. After multiple explanations, patient finally understands. Patient has no further needs at this time. Will continue to monitor. Call light within reach.
[2019-03-30] VITALS: BP 123/66; PULSE 103; TEMP 99
--- NOTE | 2019-03-30 | NUR ---
Patient awake and repositioning herself in bed at this time. Patient had been sleeping at the foot of the bed, but has now moved to normal orientation. Dhe states "I don't know why I moved to sleep down there". Patient allows vitals to be obtained. Vitals remain stable. No complaints of pain. Assessment complete with no changes from previous exam. 1:1 checks to continue. Call light within reach.
[2019-03-30 02:00] VITALS: PULSE 103
[2019-03-30 04:00] VITALS: BP 113/66; PULSE 98; TEMP 98.9
--- NOTE | 2019-03-30 04:00 | NUR ---
Patient asleep, but awakens to name. Vitals obtained and remain stable. Assessment complete with no changes from previous exam. Patient has no complaints of pain and has no needs at this time. Will continue to monitor. Call light within reach.
--- NOTE | 2019-03-30 05:30 | NUR ---
Patient wakes up at this time and allows staff to perform an EKG and have labs drawn. Patient is calm and cooperative. She asks what day it is, inform her it is Thursday. Patient is agreeable to take her synthroid this morning. Medication provided with some juice per her request. Patient gets up to the restroom and then returns to bed. No further needs. Will continue to monitor.
[2019-03-30 06:00] VITALS: PULSE 92
[2019-03-30 06:19] LABS: BASO # 0.1 (0.0-0.2); BASO % 0.7 % (0.0-2.0); EOS # 0.3 (0.0-0.7); EOS % 2.5 % (0-4.0); GRAN # 7.1 (1.4-6.5); GRAN % 68.7 % (42.2-75.2); HEMOGLOBIN 13.1 g/dl (12.0-15.0); LYMPH % 19.4 % (20.0-51.0); MEAN CELL VOLUME 85 fl (80.0-95.0); MEAN CORPUSCULAR HEMOGLOBIN 29 pg (26.0-32.0); MEAN CORPUSCULAR HGB CONC 34 g/dl (33.0-37.0); MEAN PLATELET VOLUME 9.3 fl (7.4-10.4); MONO # 0.8 (0.1-0.6); MONO % 7.8 % (1.7-9.3); PLATELET COUNT 366 K/mm3 (130-400); RED BLOOD COUNT 4.59 M/mm3 (4.10-5.30); REDCELL DISTRIBUTION WIDTH-CV 13.2 % (11.5-14.5)
[2019-03-30 06:42] LABS: ALBUMIN 4.3 gm/dL (3.5-5.0); BILIRUBIN,TOTAL 0.3 mg/dL (0.0-1.0); CALCIUM 9.6 mg/dL (8.4-10.2); CREATININE, serum 0.58 (0.52-1.25); MAGNESIUM 1.8 mg/dL (1.6-2.3); POTASSIUM 4.1 mmol/L (3.4-5.0); TOTAL PROTEIN 7.5 gm/dL (6.4-8.2)
--- NOTE | 2019-03-30 07:05 | NUR ---
Bedside report given to MIGUEL Cote. Patient asleep at this time. No current needs. Transfer of care.
--- NOTE | 2019-03-30 07:16 | NUR ---
Report received from Mary RIVERA and care resumed.
--- NOTE | 2019-03-30 08:22 | NUR ---
Pt awake and asking what day it is. Pt oriented to date and time. Pt asking when she can go home. Explained to patient that we did not have a specific date yet and that doctor would be in today and we could discuss her care. Pt offered breakfast and accepted. Also asked about "pill that dissolves". Assuming she was referring to potassium and explained to pt that her levels were within goal today so she would not have to take that. Nods understanding. Will continue to follow.
--- NOTE | 2019-03-30 09:08 | NUR ---
Pt wanting to get up and stated she needed to poop. Pt helped up to bathroom. Diaper was changed and pt freshened up. Pt brushed teeth at sink. Still unsteady on feet. Pt helped back to bed. Bed alarm on. Pt asking for snack or crackers. Saltines and ronny crackers provided. Pt denies any other needs at this time, will continue to follow.
--- NOTE | 2019-03-30 09:54 | NUR ---
CONSTRUCTION PROJECT MGR student contacted Julián Broderick to get update on placement, left message. Social serivces will continue to follow.
--- NOTE | 2019-03-30 10:43 | NUR ---
Dr Wheeler in to see pt at this time.
--- NOTE | 2019-03-30 10:51 | NUR ---
PRN meds offered but pt refusing at this time.
--- NOTE | 2019-03-30 11:24 | NUR ---
Pt was provided with new snack as she was upset with pudding. PRN meds also offered again and pt finally accepted.
--- NOTE | 2019-03-30 13:57 | NUR ---
Julián hamm [place] reports the patient is on a wait list at [facility], but he does not know where the patient is on the list. player services representative will continue to follow.
--- NOTE | 2019-03-30 15:07 | NUR ---
Pt becoming more restless again and asking to smoke or bape. Explained to pt that we were a smoke/vape free facility but that I could call to get her a nicotine patch. Pt refusing at this time. Will continue to follow.
--- NOTE | 2019-03-30 15:46 | NUR ---
Pt yelling out and crying. Pt wants to go home. Explained to pt that this was not possible and that she was waiting on placement at inpatient facility. Pt still crying out and stating I just want to go home. Pt also saying she wants to vape. Explained to pt that we are a smoke/vape free facility but that she could have a nicotine patch. She did finally accept this. PRN ativan finally accepted as well. Will continue to follow.
--- NOTE | 2019-03-30 16:18 | NUR ---
Pt still lying on floor crying out. Pt saying "I wish I was perfect. I don't like how God made me. I've overdosed before bet you didn't know that it was on Adderall. Im adopted and was born in [place], bet you didn't know that. I wish I wouldn't have lived." Pt was given PRN ativan but has not yet calmed down. Tried to redirect pt back to bed without success. Will continue to closely monitor.
--- NOTE | 2019-03-30 19:10 | NUR ---
Report given to Lara RIVERA and care transfered.
[2019-03-30 20:00] VITALS: BP 120/68; PULSE 112; TEMP 98.6
[2019-03-30 20:45] VITALS: BP 120/68; PULSE 112
--- NOTE | 2019-03-31 00:14 | NUR ---
Patient sleeping, refused medications as well as vital signs. Patient able to follow directions and denies any pain or discomfort at this time. Ambulated to toilet x2 earlier in the shift with slightly unsteady gait but minimal assistance from staff. Patient able to perform own hygiene.
--- NOTE | 2019-03-31 03:02 | NUR ---
Patient moved from head of bed to foot of bed per self without issue. Offered assistance to move back to head of bed but patient refused. Call light still within reach and bed alarm functional.
[2019-03-31 04:00] VITALS: BP 110/66; PULSE 92; TEMP 99.5
--- NOTE | 2019-03-31 07:00 | NUR ---
BEDSIDE REPORT RECEIVED FROM MIGUEL ETIENNE. PATIENT CURRENTLY USING RESTROOM AT THIS TIME. SHE IS ALERT AND COOPERATIVE. SHE IS ASSISTED BACK TO BED, BED ALARM ACTIVATED, AND REPORT FINISHED. CALL LIGHT WITHIN REACH. CARE TAKEN OVER AT THIS TIME.
[2019-03-31 07:30] VITALS: BP 118/70; PULSE 98
--- NOTE | 2019-03-31 07:48 | NUR ---
Patient asks how much longer she has to be here and if she has been found a place to go yet. I respond with "we are still waiting." She states that she is really tired of being here and wants to leave. I respond with "I understand, but it is important that you stay with us until we find you a safe place to go."
[2019-03-31 07:56] VITALS: BP 118/70; PULSE 98; TEMP 98.8
--- NOTE | 2019-03-31 09:17 | NUR ---
CALL RECEIVED FROM [facility] WITH NOTIFICATION THAT THE PATIENT HAS A HEARING TODAY AT 1400 AND [facility] WILL BE HERE TO PICK PATIENT UP BY [phone].
--- NOTE | 2019-03-31 09:59 | NUR ---
Julián hamm [place] reports that the patient has an involuntary court hearing this day. [facility] will transport the patient to this hearing. Social serivces will continue to follow.
--- NOTE | 2019-03-31 10:20 | NUR ---
Patient becomes quite agitated over the last 15 minutes. She is rolling around in the bed, mumbling, crying, saying "I wanna go!" "I wanna get out of here!" "What's taking so long?" I have attempted multiple times to explain the situation to the patient, telling her that we are waiting on placement for her and [facility] is arranging it. She says "They're taking too long!" "They're so slow!" I tell her that I understand her frustration and I will do my best to make her stay here as bearable as possible. I offer her books to read, magazines, coloring pages with crayons... she refuses all of them. I offer to find her a some music on the television, she gets angry and say's "NO TV!"
--- NOTE | 2019-03-31 10:24 | NUR ---
PRN medications offered to assist with managing anxiety. She refuses all of them. I explain to her that they will help her while she is agitated and she continues to refuse. Will continue to monitor. Bed Alarm activated.
--- NOTE | 2019-03-31 13:01 | NUR ---
Julián, from [facility], here to see patient and discuss the plan for her care. She is not accepted to any [facility] d/t her low IQ. Instead the plan is for her to return back to [facility]. She with either discharge directly to [facility] or over to the [facility] until [facility] is ready for her to discharge. Will call Mee, with social work and Dr. Wheeler with update.
--- NOTE | 2019-03-31 13:01 | NUR ---
Notified by Julián from [facility], that the patient has 2 outpt appts with [facility] on [address] tomorrow. At 13:00 appt with Lianna Tadeo (counselor), and 14:40 appointment with Carlos Adler (psychiatrist).
--- NOTE | 2019-03-31 14:35 | NUR ---
The patient is to discharge today, 03/31 at 1530 to the [facility] on [facility]. Julián from [facility] visited with the patient and this was the best course to take vs. going to involuntary court. The team and the patient's father were in agreeance. The patient's father, Cesar will transport the patient. There are no additional needs at this time.
--- NOTE | 2019-03-31 15:39 | NUR ---
DISCHARGE PACKET REVIEWED WITH THE PATIENT AND HER FATHER. PATIENT WALKED OUT TO VISITOR ENTRANCE AND SHE LEAVES WITH HER FATHER TO GO OVER TO THE [facility]ISIS STABILIZATION UNIT IN [place].
== END 2019-03-31 15:32 | DRG 918 ==
LOC: COL.ER 16:22 → ICU 19:01
PROVIDERS: Emergency Medicine; Nurse Practitioner Family; Physician Assistant; Student in an Organized Health Care Education/Training Program; ADMIT Internal Medicine
DX: T42.4X2A Poisoning by benzodiazepines, intentional self-harm, initial encounter (principal); F79 Unspecified intellectual disabilities; F31.9 Bipolar disorder, unspecified; T14.91XA Suicide attempt, initial encounter; F98.8 Other specified behavioral and emotional disorders with onset usually occurring in childhood and adolescence; E87.6 Hypokalemia; E03.9 Hypothyroidism, unspecified; F91.3 Oppositional defiant disorder; D64.9 Anemia, unspecified; D72.829 Elevated white blood cell count, unspecified; E66.9 Obesity, unspecified; F17.210 Nicotine dependence, cigarettes, uncomplicated; Q86.0 Fetal alcohol syndrome (dysmorphic)
CPT/HCPCS: 99223-AI; 99232-AI; 99233-AI; 99239; A4216; J0696; J1630; J2060; J3475; J3480; J7030; J7120

== ENCOUNTER 2020-01-17 07:23 | Emergency (ER) | payer OTHER, MEDICAID ==
[~2020-01-17] VITALS: Ht 160 cm; Wt 72.7 kg
[~2020-01-17 07:23] MED LIST changes: +ADDERALL XR20 MG PO; +CLOZAPINE50 MG PO
[2020-01-17 07:28] VITALS: TEMP 98
[2020-01-17 07:53] LABS: COLLECTION METHOD CLEAN CATCH
[2020-01-17 07:56] LABS: BASO # 0.1 (0.0-0.2); BASO % 0.8 % (0.0-2.0); EOS # 0.3 (0.0-0.7); EOS % 2.7 % (0-4.0); GRAN # 6.3 (1.4-6.5); GRAN % 65.2 % (42.2-75.2); HEMATOCRIT 39.4 % (35.0-45.0); HEMOGLOBIN 13.6 g/dl (12.0-15.0); LYMPH # 2.3 (1.2-3.4); LYMPH % 24.1 % (20.0-51.0); MEAN CELL VOLUME 84 fl (80.0-95.0); MEAN CORPUSCULAR HEMOGLOBIN 29 pg (26.0-32.0); MEAN CORPUSCULAR HGB CONC 35 g/dl (33.0-37.0); MEAN PLATELET VOLUME 9.4 fl (7.4-10.4); MONO # 0.7 (0.1-0.6); PLATELET COUNT 332 K/mm3 (130-400); RED BLOOD COUNT 4.67 M/mm3 (4.10-5.30); REDCELL DISTRIBUTION WIDTH-CV 13.2 % (11.5-14.5)
[2020-01-17 08:12] LABS: MUCOUS Present /lpf; PH 5 (5-8); SQUAMOUS EPITHELIAL 20-50 /hpf; URINE APPEARANCE Cloudy; URINE BACTERIA Rare /hpf; URINE BILIRUBIN Negative (NEGATIVE); URINE BLOOD Negative (NEGATIVE); URINE COLOR Yellow; URINE GLUCOSE Negative (NEGATIVE); URINE KETONE Negative (NEGATIVE); URINE LEUKOCYTE ESTERASE 3+ (NEGATIVE); URINE NITRATE Negative (NEGATIVE); URINE PROTEIN(semi-quant) 1+ (NEGATIVE)
[2020-01-17 08:17] LABS: ACETAMINOPHEN < 10 ug/mL (10-30); ALANINE AMINOTRANSFERASE 16 U/L (4-34); ALBUMIN 4.5 gm/dL (3.5-5.0); ALCOHOL(ethanol),MEDICAL < 10 mg/dL; ALKALINE PHOSPHATASE 75 U/L (50-136); ANION GAP 9 mmol/L (7-16); AST,SGOT 23 U/L (15-37); BILIRUBIN,TOTAL 0.4 mg/dL (0.0-1.0); BLOOD UREA NITROGEN 15 mg/dL (7-17); CALCIUM 9.2 mg/dL (8.4-10.2); CARBON DIOXIDE 23 mmol/L (22-30); CHLORIDE 107 mmol/L (98-107); CREATININE, serum 0.69 (0.52-1.25); GLUCOSE 105 mg/dL (74-106); POTASSIUM 4.1 mmol/L (3.4-5.0); SALICYLATE < 1.0 mg/dL; SODIUM 140 mmol/L (137-145); TOTAL PROTEIN 7.3 gm/dL (6.4-8.2)
[2020-01-17 08:25] LABS: TRICYCLIC ANTIDEPRESS URINE POSITIVE
[2020-01-18 01:15] VITALS: BP 98/64; PULSE 64
== END 2020-01-18 01:15 ==
LOC: COL.ER 07:23
PROVIDERS: Family Medicine
DX: F32.9 Major depressive disorder, single episode, unspecified (principal); F41.9 Anxiety disorder, unspecified; Z20.828 Contact with and (suspected) exposure to other viral communicable diseases